=== PATIENT | female | born 1935 | race Caucasian/White ===

== ENCOUNTER → 2016-09-17 | Outpatient (CLI) | payer OTHER ==
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
== END | disposition home or self-care (01) ==
LOC: KCIC MRI 12:50
PROVIDERS: ATTEND Family Medicine
DX: R42 Dizziness and giddiness (principal); R68.89 Other general symptoms and signs; W10.8XXS Fall (on) (from) other stairs and steps, sequela
CPT/HCPCS: 70551